=== PATIENT | female | born 1985 | race Two or more races ===

== ENCOUNTER 2018-08-04 21:22 | Emergency (ER) | payer SELFPAY ==
[~2018-08-04] VITALS: Ht 154.9 cm; Wt 59.2 kg
[2018-08-04 21:24] VITALS: BP 148/88
== END 2018-08-04 21:53 | disposition home or self-care (01) ==
LOC: ED 21:47
DX: H01.005 Unspecified blepharitis left lower eyelid (principal)
CPT/HCPCS: 99283